=== PATIENT | female | born 1980 | race Caucasian/White ===

== ENCOUNTER → 2018-09-08 | Outpatient (CLI) | payer OTHER ==
[2006-01-10 07:48] VITALS: TEMP 98
[~2018-09-08] MED LIST: MOTRIN 800800 MG/TAB PO; PERCOCET 5/321 UDTAB PO
== END ==
LOC: MC.RAD 13:00
DX: N63.31 Unspecified lump in axillary tail of the right breast (principal); Z98.82 Breast implant status